=== PATIENT | female | born 2000 | race Two or more races ===

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

== ENCOUNTER 2022-01-20 20:32 | Emergency (ER) | payer MEDICAID ==
[~2022-01-20] VITALS: Ht 149.9 cm; Wt 68.0 kg
[2022-01-21] MEDS ORDERED: ONDA-144 PO (00:20)
[2022-01-21] MEDS ORDERED: PERCOT PO (00:20)
[2022-01-21] MEDS ORDERED: KETOROLAC TROMETH 60MG/2ML VIAL IM ONE (00:30)
[2022-01-21 00:56] VITALS: BP 144/102
== END 2022-01-21 00:36 | disposition home or self-care (01) ==
LOC: EDBD 20:32 → ER 20:35
DX: S76.911A Strain of unspecified muscles, fascia and tendons at thigh level, right thigh, initial encounter (principal); V43.52XA Car driver injured in collision with other type car in traffic accident, initial encounter; Y93.89 Activity, other specified; Y92.488 Other paved roadways as the place of occurrence of the external cause; Y99.8 Other external cause status
CPT/HCPCS: 73502; 73562; 74176

== ENCOUNTER → 2022-04-21 | Emergency (ER) | payer MEDICAID ==
[~2022-04-21] VITALS: Ht 149.9 cm; Wt 68.0 kg
[~2022-04-21] MED LIST: ACETAMINOPHEN 325 MG TAB PO ONE; ONDA-144 PO; PERCOT PO
[2022-04-21 19:38] LABS: Basophils # (auto) 0.1 10 ^3/uL (0-0.2); Basophils % (auto) 0.6 % (0.0-2.0); Eosinophils # (auto) 0.1 10 ^3/uL (0-0.8); Eosinophils % (auto) 0.8 % (0.0-7.0); Hematocrit 39.8 % (36.0-46.0); Hemoglobin 13.5 g/dL (12.2-16.2); Lymphocytes # (auto) 2.6 10 ^3/uL (0.4-5.4); Lymphocytes % (auto) 25.1 % (10.0-50.0); Mean Corpuscular Hemoglobin 28.3 pg (28.0-32.0); Mean Corpuscular Hgb Conc. 33.8 g/dL (32.0-36.0); Mean Corpuscular Volume 83.7 fL (80.0-100.0); Monocytes # (auto) 0.7 10 ^3/uL (0-1.3); Monocytes % (auto) 6.5 % (0.0-12.0); Nucleated Red Blood Cells % 0.1 %; Red Blood Cells 4.76 10^6/uL (4.0-5.20); Red Cell Distribution Width 12.9 % (11.8-14.3); White Blood Cell 10.4 10^3/uL (4.4-10.8)
[2022-04-21 19:57] LABS: Albumin 3.8 g/dL (3.4-5.0); Calcium 8.5 mg/dL (8.5-10.1); Magnesium 2.1 mg/dL (1.6-2.6); Potassium 3.6 mmol/L (3.5-5.1)
[2022-04-21 20:00] LABS: BUN/Creatinine Ratio 18.6; Bilirubin, Total 0.5 mg/dL (0.2-1.0); CRP High Sensitivity 0.32 mg/dL (< 0.3); Total Protein 7.8 g/dL (6.4-8.2)
[2022-04-21 22:11] VITALS: BP 136/67
[2022-04-21 23:16] LABS: Urine Bacteria FEW /hpf (None Seen); Urine Blood Negative /uL (Negative); Urine WBC 2 /hpf (0 - 5)
== END | disposition left against medical advice (07) ==
LOC: ER 18:43
DX: R51.9 Headache, unspecified (principal); I10 Essential (primary) hypertension; Z90.49 Acquired absence of other specified parts of digestive tract
CPT/HCPCS: 36415; 70450; 80053; 81001; 83735; 84702; 85025; 85652; 86141; 93005

== ENCOUNTER 2022-09-08 16:35 | Emergency (ER) | payer MEDICAID ==
[~2022-09-08] VITALS: Ht 149.9 cm; Wt 73.0 kg
[~2022-09-08 16:35] MED LIST changes: -ACETAMINOPHEN 325 MG TAB PO ONE
[2022-09-08] MEDS ORDERED: cefTRIAXone SOD 1,000 MG VL IM ONE (17:00)
[2022-09-08] MEDS ORDERED: methylPREDNISolone SOD SUCC 125 MG/2 ML VL IM ONE (17:00)
[2022-09-08] MEDS ORDERED: PROM1SOL4 BC (18:05)
[2022-09-08] MEDS ORDERED: PRED20TA2 PO (18:05)
[2022-09-08] MEDS ORDERED: AZIT500T66 PO (18:05)
[2022-09-08 18:13] VITALS: BP 131/92
== END 2022-09-08 18:12 | disposition home or self-care (01) ==
LOC: EEVIPCON 16:35 → ER 16:35
DX: J03.90 Acute tonsillitis, unspecified (principal); J20.9 Acute bronchitis, unspecified; Z90.49 Acquired absence of other specified parts of digestive tract
CPT/HCPCS: 71046; 96372; 99284; J0696; J2930

== ENCOUNTER → 2022-10-11 | Outpatient (CLI) | payer MEDICAID ==
[~2022-10-11] MED LIST changes: +AZIT500T66 PO; +PRED20TA2 PO; +PROM1SOL4 BC
== END | disposition home or self-care (01) ==
LOC: LAB 10:23
PROVIDERS: ATTEND Obstetrics & Gynecology
DX: N91.2 Amenorrhea, unspecified (principal)
CPT/HCPCS: 36415; 84144; 84702

== ENCOUNTER → 2022-11-29 | Outpatient (CLI) | payer OTHER ==
[~2022-11-29] MED LIST changes: +CEPH500C PO
[2022-11-29 12:38] LABS: Basophils # (auto) 0 10 ^3/uL (0-0.2); Basophils % (auto) 0.2 % (0.0-2.0); Eosinophils # (auto) 0.1 10 ^3/uL (0-0.8); Eosinophils % (auto) 0.8 % (0.0-7.0); Hematocrit 38.6 % (36.0-46.0); Hemoglobin 13.2 g/dL (12.2-16.2); Lymphocytes # (auto) 1.8 10 ^3/uL (0.4-5.4); Lymphocytes % (auto) 19.2 % (10.0-50.0); Mean Corpuscular Hgb Conc. 34.1 g/dL (32.0-36.0); Mean Corpuscular Volume 85.1 fL (80.0-100.0); Monocytes # (auto) 0.6 10 ^3/uL (0-1.3); Neutrophils % (auto) 73.8 % (37.0-80.0); Red Blood Cells 4.53 10^6/uL (4.0-5.20); Red Cell Distribution Width 12.2 % (11.8-14.3); White Blood Cell 9.5 10^3/uL (4.4-10.8)
[2022-11-29 13:01] LABS: Alcohol, Urine < 3.0 mg/dL (0-10); Amphetamine Screen, Urine NEGATIVE (NEGATIVE); Barbiturate Scree,Urine NEGATIVE (NEGATIVE); Benzodiazephine Screen, Urine NEGATIVE (NEGATIVE); Cannabinoid Screen, Urine NEGATIVE (NEGATIVE); Cocaine Screen, Urine NEGATIVE (NEGATIVE); Opiate Scree,Urine NEGATIVE (NEGATIVE); Phencyclidine Screen, Urine NEGATIVE (NEGATIVE)
[2022-11-30 08:06] LABS: RPR Non Reactive (Non Reactive)
== END | disposition home or self-care (01) ==
LOC: LAB 11:25
PROVIDERS: ATTEND Obstetrics & Gynecology
DX: Z34.82 Encounter for supervision of other normal pregnancy, second trimester (principal); Z31.430 Encounter of female for testing for genetic disease carrier status for procreative management; N39.0 Urinary tract infection, site not specified; Z3A.00 Weeks of gestation of pregnancy not specified
CPT/HCPCS: 36415; 80307; 83036; 84112; 84144; 84702; 85025; 86592; 86703; 86762; 86850; 86900; 86901; 87086; 87088; 87186; 87340

== ENCOUNTER → 2023-01-02 | Outpatient (CLI) | payer MEDICAID | END | disposition home or self-care (01) | LOC: LAB 15:57 | PROVIDERS: ATTEND Obstetrics & Gynecology | DX: Z34.80 Encounter for supervision of other normal pregnancy, unspecified trimester (principal); Z3A.00 Weeks of gestation of pregnancy not specified | CPT/HCPCS: 87086 ==

== ENCOUNTER 2023-01-26 15:13 | Observation (INO) | payer MEDICAID | END 2023-01-26 16:45 | disposition home or self-care (01) | LOC: LDRP 15:13 → UNDODISOB 16:45 | PROVIDERS: ADMIT Obstetrics & Gynecology; ATTEND Obstetrics & Gynecology | DX: O62.9 Abnormality of forces of labor, unspecified (principal); O26.892 Other specified pregnancy related conditions, second trimester; R11.0 Nausea; R10.9 Unspecified abdominal pain; Z3A.20 20 weeks gestation of pregnancy | CPT/HCPCS: 81002; 94760; G0378 ==

== ENCOUNTER 2023-03-03 14:50 | Observation (INO) | payer MEDICAID ==
[~2023-03-03 14:50] MED LIST changes: +CIP03OS RIGHTEYE
[2023-03-03] MEDS ORDERED: PREN-96 PO (15:33)
== END 2023-03-03 16:05 | disposition home or self-care (01) ==
LOC: LDRP 14:50
PROVIDERS: ADMIT Obstetrics & Gynecology; ATTEND Obstetrics & Gynecology
DX: O36.8120 Decreased fetal movements, second trimester, not applicable or unspecified (principal); O26.892 Other specified pregnancy related conditions, second trimester; R10.9 Unspecified abdominal pain; Z3A.25 25 weeks gestation of pregnancy
CPT/HCPCS: 59025; 81002; G0378

== ENCOUNTER 2023-04-07 08:09 | Observation (INO) | payer MEDICAID ==
[~2023-04-07 08:09] MED LIST changes: -AZIT500T66 PO; -CEPH500C PO; -ONDA-144 PO; -PERCOT PO; -PRED20TA2 PO; +PREN-96 PO; -PROM1SOL4 BC
== END 2023-04-07 10:11 | disposition home or self-care (01) ==
LOC: LDRP 08:09
PROVIDERS: ADMIT Obstetrics & Gynecology; ATTEND Obstetrics & Gynecology
DX: O40.3XX0 Polyhydramnios, third trimester, not applicable or unspecified (principal); O36.63X0 Maternal care for excessive fetal growth, third trimester, not applicable or unspecified; O36.8330 Maternal care for abnormalities of the fetal heart rate or rhythm, third trimester, not applicable or unspecified; Z3A.30 30 weeks gestation of pregnancy
CPT/HCPCS: 59025; 76818; 81002; 94760; G0378

== ENCOUNTER 2023-04-13 18:09 | Observation (INO) | payer MEDICAID ==
[~2023-04-13] VITALS: Ht 149.9 cm; Wt 87.5 kg
== END 2023-04-13 20:12 | disposition home or self-care (01) ==
LOC: LDRP 18:09
PROVIDERS: ADMIT Obstetrics & Gynecology; ATTEND Obstetrics & Gynecology
DX: O40.3XX0 Polyhydramnios, third trimester, not applicable or unspecified (principal); O36.63X0 Maternal care for excessive fetal growth, third trimester, not applicable or unspecified; Z3A.31 31 weeks gestation of pregnancy
CPT/HCPCS: 59025; 76818; 81002; 94760; G0378

== ENCOUNTER 2023-04-20 11:20 | Observation (INO) | payer MEDICAID ==
[~2023-04-20] VITALS: Ht 149.9 cm; Wt 87.1 kg
== END 2023-04-20 12:44 | disposition home or self-care (01) ==
LOC: LDRP 11:20
PROVIDERS: ADMIT Obstetrics & Gynecology; ATTEND Obstetrics & Gynecology
DX: O40.3XX0 Polyhydramnios, third trimester, not applicable or unspecified (principal); O36.63X0 Maternal care for excessive fetal growth, third trimester, not applicable or unspecified; Z3A.32 32 weeks gestation of pregnancy
CPT/HCPCS: 59025; 76818; 81002; 94760; G0378

== ENCOUNTER 2023-04-27 10:55 | Observation (INO) | payer MEDICAID | END 2023-04-27 12:00 | disposition home or self-care (01) | LOC: LDRP 10:55 | PROVIDERS: ADMIT Obstetrics & Gynecology; ATTEND Obstetrics & Gynecology | DX: O40.3XX0 Polyhydramnios, third trimester, not applicable or unspecified (principal); O99.891 Other specified diseases and conditions complicating pregnancy; M54.50 Low back pain, unspecified; Z3A.33 33 weeks gestation of pregnancy | CPT/HCPCS: 59025; 76818; 81002; G0378 ==

== ENCOUNTER 2023-05-12 09:48 | Observation (INO) | payer MEDICAID | END 2023-05-12 11:55 | disposition home or self-care (01) | LOC: LDRP 09:48 | PROVIDERS: ADMIT Obstetrics & Gynecology; ATTEND Obstetrics & Gynecology | DX: O40.3XX0 Polyhydramnios, third trimester, not applicable or unspecified (principal); O36.63X0 Maternal care for excessive fetal growth, third trimester, not applicable or unspecified; Z3A.35 35 weeks gestation of pregnancy | CPT/HCPCS: 59025; 76818; 81002; G0378 ==

== ENCOUNTER 2023-05-18 08:32 | Observation (INO) | payer MEDICAID | END 2023-05-18 13:17 | disposition home or self-care (01) | LOC: UNDOADMOB 11:54 → LDRP 11:54 | PROVIDERS: ADMIT Obstetrics & Gynecology; ATTEND Obstetrics & Gynecology | DX: O40.3XX0 Polyhydramnios, third trimester, not applicable or unspecified (principal); O36.63X0 Maternal care for excessive fetal growth, third trimester, not applicable or unspecified; Z3A.36 36 weeks gestation of pregnancy | CPT/HCPCS: 59025; 76818; 81002; 94760; G0378 ==

== ENCOUNTER 2023-05-25 12:43 | Observation (INO) | payer MEDICAID | END 2023-05-25 15:09 | disposition home or self-care (01) | LOC: LDRP 12:43 → UNDOADMOB 12:43 → LDRP 13:00 | PROVIDERS: ADMIT Obstetrics & Gynecology; ATTEND Obstetrics & Gynecology | DX: O36.63X0 Maternal care for excessive fetal growth, third trimester, not applicable or unspecified (principal); Z3A.37 37 weeks gestation of pregnancy | CPT/HCPCS: 59025; 76818; 81002; 94760; G0378 ==

== ENCOUNTER 2023-05-27 12:27 | Observation (INO) | payer MEDICAID ==
[~2023-05-27] VITALS: Ht 149.9 cm; Wt 87.5 kg
== END 2023-05-27 14:06 | disposition home or self-care (01) ==
LOC: LDRP 12:27
PROVIDERS: ADMIT Obstetrics & Gynecology; ATTEND Obstetrics & Gynecology
DX: O36.63X0 Maternal care for excessive fetal growth, third trimester, not applicable or unspecified (principal); O42.92 Full-term premature rupture of membranes, unspecified as to length of time between rupture and onset of labor; Z3A.37 37 weeks gestation of pregnancy
CPT/HCPCS: 59025; 76818; 81002; 94760; G0378

== ENCOUNTER 2023-05-29 08:40 | Inpatient (IN) | payer MEDICAID ==
[~2023-05-29] VITALS: Ht 149.9 cm; Wt 88.0 kg
[2023-05-29] MEDS ORDERED: LACTATED RINGER'S 1,000 ML IV SCH (09:45)
[2023-05-29] MEDS ORDERED: LIDOCAINE 2%HCL (LOCAL ANESTH.) INJ 20ML MDV IJ PRN (09:45)
[2023-05-29] MEDS ORDERED: PROMETHAZINE HCL 25 MG/ML 1ML IV PRN ×2 (09:45→10:00)
[2023-05-29] MEDS ORDERED: PHISODERM TOP SOLN 240ML BTL TOP PRN (09:45)
[2023-05-29] MEDS ORDERED: DERMOPLAST 60ML BOTTLE TOP PRN (09:45)
[2023-05-29] MEDS ORDERED: BUTORPHANOL TARTRATE 2 MG/1 ML VIAL IV PRN ×2 (09:45)
[2023-05-29] MEDS ORDERED: WITCH HAZEL-GLYCERIN PAD TOP PRN (09:45)
[2023-05-29] MEDS: LACTATED RINGER'S 1,000 ML IV SCH ×3 (10:26→23:32)
[2023-05-29 10:35] LABS: Basophils # (auto) 0 10 ^3/uL (0-0.2); Basophils % (auto) 0.2 % (0.0-2.0); Eosinophils # (auto) 0.1 10 ^3/uL (0-0.8); Eosinophils % (auto) 0.5 % (0.0-7.0); Hematocrit 35.2 % (36.0-46.0); Hemoglobin 11.9 g/dL (12.2-16.2); Lymphocytes # (auto) 1.7 10 ^3/uL (0.4-5.4); Lymphocytes % (auto) 16.3 % (10.0-50.0); Mean Corpuscular Hemoglobin 27.5 pg (28.0-32.0); Mean Corpuscular Hgb Conc. 33.7 g/dL (32.0-36.0); Mean Corpuscular Volume 81.8 fL (80.0-100.0); Monocytes # (auto) 0.7 10 ^3/uL (0-1.3); Neutrophils # (auto) 7.7 10 ^3/uL (1.6-8.6); Red Blood Cells 4.31 10^6/uL (4.0-5.20); Red Cell Distribution Width 13.9 % (11.8-14.3); White Blood Cell 10.2 10^3/uL (4.4-10.8)
[2023-05-29 10:58] LABS: INR 0.97 (0.9-1.15); Partial Thromboplastin Time 28.5 SEC (24.5-34.5); Prothrombin Time 10.2 sec (9.3-11.8)
[2023-05-29 11:25] LABS: Fern Testing Negative
[2023-05-29 11:30] LABS: Urine Bacteria NONE SEEN /hpf (None Seen); Urine Blood Negative /uL (Negative); Urine Clarity HAZY (Clear); Urine Color Yellow (Yellow); Urine Mucus FEW (None Seen); Urine Protein, UAD TRACE (Negative); Urine Specific Gravity 1.026 (1.001-1.035); Urine Urobilinogen Normal (Negative); Urine WBC 9 /hpf (0 - 5)
[2023-05-29 11:34] LABS: Albumin 2.9 g/dL (3.4-5.0); BUN/Creatinine Ratio 18.8 (10.0-20.0); Bilirubin, Total 1.1 mg/dL (0.2-1.0); Calcium 8.9 mg/dL (8.5-10.1); Potassium 3.9 mmol/L (3.5-5.1); Total Protein 6.5 g/dL (6.4-8.2)
[2023-05-29 11:41] LABS: Alcohol, Urine < 3.0 mg/dL (0-10)
[2023-05-29] MEDS: miSOPROStol 50 MCG per PRE-CUT 1/2 TAB PO PRN ×3 (11:48→21:45)
[2023-05-29 12:00] LABS: Amphetamine Screen, Urine NEGATIVE (NEGATIVE); Barbiturate Scree,Urine NEGATIVE (NEGATIVE); Benzodiazephine Screen, Urine NEGATIVE (NEGATIVE); Cannabinoid Screen, Urine NEGATIVE (NEGATIVE); Cocaine Screen, Urine NEGATIVE (NEGATIVE); Opiate Scree,Urine NEGATIVE (NEGATIVE); Phencyclidine Screen, Urine NEGATIVE (NEGATIVE)
[2023-05-29] MEDS ORDERED: ceFAZolin 2 GM/D5W100ml 100 ML IV ONE (12:00)
[2023-05-29] MEDS ORDERED: Lidocaine W-Epinephrine 1.5%-1:200,000 INJ 10ml Vial IJ ONE (15:15)
[2023-05-29] MEDS ORDERED: LACT. RINGERS/OXYTOCIN 20UNITS 500 ML IV ONE ×2 (15:15→15:45)
[2023-05-29] MEDS ORDERED: LIDOCAINE HCL 2 %PF INJ 10ML AMP IJ ONE (15:15)
[2023-05-29] MEDS ORDERED: fentaNYL CITRATE 100 MCG/2 ML VL IV ONE (15:15)
[2023-05-29] MEDS ORDERED: LACTATED RINGER'S 1,000 ML IV ONE (15:15)
[2023-05-29] MEDS ORDERED: ePHEDrine SULFATE 50 MG/ML AMP IV ONE (15:15)
[2023-05-29] MEDS ORDERED: ROPIVACAINE HCL 200 ML EPI SCH (15:15)
[2023-05-29] MEDS ORDERED: NALOXONE HCL 0.4 MG/ML VIAL IV ONE (15:15)
[2023-05-29] MEDS: ceFAZolin 1GM/50ML 50 ML IV SCH (20:14)
[2023-05-29] MEDS ORDERED: METHYLERGONOVINE MALEATE 0.2 MG/ML AMP IM PRN (23:00)
[2023-05-29] MEDS ORDERED: fentaNYL CITRATE 100 MCG/2 ML VL IV SCH (23:00)
[2023-05-29] MEDS ORDERED: ACETAMINOPHEN 325 MG TAB PO PRN (23:00)
[2023-05-29] MEDS ORDERED: TRANEXAMIC ACID 1,000 MG in SODIUM CHL 0.9% 100 ML IV PRN (23:00)
[2023-05-29] MEDS ORDERED: diphenhdrAMINE HCL 50 MG/1 ML VL IV PRN (23:00)
[2023-05-29] MEDS ORDERED: ONDANSETRON HCL 4 MG/2 ML VIAL IV PRN (23:00)
[2023-05-29] MEDS ORDERED: miSOPROStol 100 mcg TAB SL PRN (23:00)
[2023-05-29] MEDS ORDERED: MINERAL OIL TOPICAL 10ml TOP PRN (23:00)
[2023-05-29] MEDS ORDERED: CARBOPROST TROMETHAMINE 250 MCG/1ML VIAL IM PRN (23:00)
[2023-05-29] MEDS ORDERED: fentaNYL CITRATE 100 MCG/2 ML VL IV PRN (23:30)
[2023-05-30] MEDS ORDERED: DIPHENOXYLATE W/ATROPINE 2.5 MG TAB PO SCH
[2023-05-30] MEDS ORDERED: Lidocaine W-Epinephrine 1.5%-1:200,000 INJ 10ml Vial IJ ONE (02:45)
[2023-05-30] MEDS ORDERED: ROPIVACAINE HCL 200 ML EPI SCH ×2 (02:45→04:15)
[2023-05-30] MEDS ORDERED: fentaNYL CITRATE 100 MCG/2 ML VL IV ONE (02:45)
[2023-05-30] MEDS ORDERED: ePHEDrine SULFATE 50 MG/ML AMP IV ONE (02:45)
[2023-05-30] MEDS ORDERED: NALOXONE HCL 0.4 MG/ML VIAL IV ONE (02:45)
[2023-05-30] MEDS ORDERED: LACT. RINGERS/OXYTOCIN 20UNITS 1,000 ML IV SCH (04:30)
[2023-05-30] MEDS: ceFAZolin 1GM/50ML 50 ML IV SCH (04:53)
[2023-05-30 06:06] LABS: RPR Non Reactive (Non Reactive)
[2023-05-30] MEDS: LACTATED RINGER'S 1,000 ML IV SCH (09:45)
[2023-05-30] MEDS ORDERED: ACETAMINOPHEN 325 MG TAB PO PRN (11:15)
[2023-05-30] MEDS ORDERED: ONDANSETRON ODT 4 MG TAB PO PRN (11:15)
[2023-05-30] MEDS ORDERED: RHO (D) IMMUNE GLOBULIN 300 MCG INJ IM ONE (14:00)
[2023-05-30] MEDS ORDERED: TETANUS-DIPTH-ACEL PERTUSSIS 0.5ML SYR Tdap IM ONE (14:30)
[2023-05-30 15:00] VITALS: BP 114/63; PULSE 100; RESP 17; TEMP 98; O2SAT 97
[2023-05-30] MEDS: IBUPROFEN 600 MG TAB PO PRN (17:05)
[2023-05-30 19:00] VITALS: BP 120/75; PULSE 92; RESP 16; TEMP 98.2; O2SAT 96
[2023-05-30 23:00] VITALS: BP 118/65; PULSE 89; RESP 18; TEMP 98; O2SAT 97
[2023-05-31] MEDS: IBUPROFEN 600 MG TAB PO PRN ×2 (00:55→08:33)
[2023-05-31 03:00] VITALS: BP 105/57; PULSE 78; RESP 16; TEMP 97.8; O2SAT 97
[2023-05-31 06:53] LABS: Basophils # (auto) 0 10 ^3/uL (0-0.2); Basophils % (auto) 0.2 % (0.0-2.0); Eosinophils # (auto) 0.1 10 ^3/uL (0-0.8); Eosinophils % (auto) 0.9 % (0.0-7.0); Hematocrit 28.9 % (36.0-46.0); Hemoglobin 9.7 g/dL (12.2-16.2); Lymphocytes # (auto) 2.2 10 ^3/uL (0.4-5.4); Lymphocytes % (auto) 19.8 % (10.0-50.0); Mean Corpuscular Hemoglobin 27.7 pg (28.0-32.0); Mean Corpuscular Hgb Conc. 33.7 g/dL (32.0-36.0); Mean Corpuscular Volume 82.3 fL (80.0-100.0); Monocytes # (auto) 1.1 10 ^3/uL (0-1.3); Monocytes % (auto) 9.5 % (0.0-12.0); Neutrophils # (auto) 7.7 10 ^3/uL (1.6-8.6); Neutrophils % (auto) 69.6 % (37.0-80.0); Nucleated Red Blood Cells % 0.1 %; Red Blood Cells 3.51 10^6/uL (4.0-5.20); Red Cell Distribution Width 13.7 % (11.8-14.3); White Blood Cell 11.1 10^3/uL (4.4-10.8)
[2023-05-31 07:00] VITALS: BP 111/60; PULSE 92; RESP 18; TEMP 97.8; O2SAT 98
[2023-05-31 11:00] VITALS: BP 110/60; PULSE 92; RESP 18; TEMP 98.1; O2SAT 98
[2023-05-31] MEDS ORDERED: ACET-1882 PO (12:53)
[2023-05-31] MEDS ORDERED: PREN-96 PO (12:53)
[2023-05-31] MEDS ORDERED: IBU600T PO (12:53)
[2023-05-31] MEDS ORDERED: [UNRECOGNIZED DRUG - CODE] PO (12:53)
[2023-05-31] MEDS ORDERED: ASCO1TAB27 PO (12:53)
[2023-05-31] MEDS ORDERED: DOCU-94 PO (12:53)
[2023-05-31 15:00] VITALS: BP 117/59; PULSE 89; RESP 20; TEMP 98.1; O2SAT 98
[2023-05-31 15:18] VITALS: BP 128/73; PULSE 82; RESP 18; TEMP 98
[2023-05-31 20:06] LABS: Treponema pallidum Ab (FTA-Ab) Non Reactive (Non Reactive)
== END 2023-05-31 16:36 | disposition home or self-care (01) | DRG 560 ==
LOC: LDRP 08:40 → OBSVTOIN 09:40 → LDRP 09:41
PROVIDERS: ADMIT Obstetrics & Gynecology; ATTEND Obstetrics & Gynecology
PROC: 10D07Z6 Extraction of Products of Conception, Vacuum, Via Natural or Artificial Opening (ICD-10-PCS; principal; 2023-05-30)
PROC: 3E0DXGC Introduction of Other Therapeutic Substance into Mouth and Pharynx, External Approach (ICD-10-PCS; 2023-05-30)
PROC: 3E0R3BZ Introduction of Anesthetic Agent into Spinal Canal, Percutaneous Approach (ICD-10-PCS; 2023-05-30)
PROC: 00HU33Z Insertion of Infusion Device into Spinal Canal, Percutaneous Approach (ICD-10-PCS; 2023-05-30)
PROC: 3E0234Z Introduction of Serum, Toxoid and Vaccine into Muscle, Percutaneous Approach (ICD-10-PCS; 2023-05-31)
DX: O26.893 Other specified pregnancy related conditions, third trimester (principal); Z37.0 Single live birth; O41.03X0 Oligohydramnios, third trimester, not applicable or unspecified; O99.02 Anemia complicating childbirth; Z3A.37 37 weeks gestation of pregnancy; Z67.41 Type O blood, Rh negative; Z23 Encounter for immunization; R71.0 Precipitous drop in hematocrit
CPT/HCPCS: 36415; 59025; 59409; 62282; 76818; 80053; 80307; 81001; 81002; 84112; 85025; 85610; 85730; 86592; 86850; 86900; 86901; 90384; 90715; 94760; 96360; 96361; 96365; 96366; 96372; G0378; J0690; J2590